=== PATIENT | female | born 1975 | race Caucasian/White ===

== ENCOUNTER 2017-09-05 01:05 | Emergency (ER) | payer SELFPAY ==
--- NOTE | 2017-09-05 01:50 | NUR ---
CALLED FOR TRIAGE; NOT IN LOBBY
== END 2017-09-05 01:52 | disposition left against medical advice (07) ==
LOC: ER 01:14
DX: Z53.21 Procedure and treatment not carried out due to patient leaving prior to being seen by health care provider (principal)